=== PATIENT | female | born 1965 | race Caucasian/White ===

== ENCOUNTER 2019-09-22 09:46 | Emergency (ER) | payer OTHER ==
--- NOTE | 2019-09-22 10:13 | ER Document Report ---
ED Medical Screen (RME) - General Chief Complaint: Chest Pain Stated Complaint: CHEST DISCOMFORT Time Seen by Provider: 09/22/19 10:11 Primary Care Provider: BRIANA HYATT MD [Primary Care Provider] - Follow up as needed Mode of Arrival: Ambulatory Information source: Patient Notes: 53-year-old female presented to ED for complaint of urinary frequency, abdominal pain, chest pain, shoulder pain nausea but no vomiting. Did this morning. Patient is alert and oriented respirations regular and unlabored. Patient has elevated cholesterol diabetes type II. States she has had a total hysterectomy. I have greeted and performed a rapid initial assessment of this patient. A comprehensive ED assessment and evaluation of the patient, analysis of test results and completion of medical decision making process will be conducted by an additional ED providers. TRAVEL OUTSIDE OF THE [place] IN LAST 30 DAYS: No - Related Data Allergies/Adverse Reactions: morphine [Morphine] Adverse Reaction (Verified 08/01/12 22:26) Past Medical History - Social History Frequency of alcohol use: None Drug Abuse: None Psychiatric Medical History: Reports: Hx Depression Past Surgical History: Reports: Hx Hysterectomy Course - Laboratory Laboratory results interpreted by me: 09/22/19 10:01 POC Glucose 119 H Doctor's Discharge - Discharge Referrals: BRIANA HYATT MD [Primary Care Provider] - Follow up as needed
--- NOTE | 2019-09-22 10:35 | ER Document Report ---
ED Cardiac - General Chief Complaint: Chest Pain Stated Complaint: CHEST DISCOMFORT Time Seen by Provider: 09/22/19 10:11 Primary Care Provider: BRIANA HYATT MD [COMMUNITY BASED STAFF] - Follow up as needed Mode of Arrival: Stretcher - This 53-year-old woman presents to the emergency department with a history of chest pressure and left shoulder pain which began at her doctor's office for an appointment. Patient was sent to the emergency department by EMS. An EKG was performed which revealed no acute ST elevation [place]. She has a known history of anxiety and depression. Patient states she has had episodes similar in the past which she has contributed to her anxiety. She states that the symptoms lasted for about 5 minutes, she has had some dizziness and nausea associated with symptoms. She has history of diabetes, hypercholesterolemia elevated BMI, she denies a history of CAD. Information source: Patient TRAVEL OUTSIDE OF THE [place] IN LAST 30 DAYS: No - Related Data Allergies/Adverse Reactions: morphine [Morphine] Adverse Reaction (Verified 09/22/19 10:39) Past Medical History - General Information source: Patient - Social History Smoking Status: Never Smoker Frequency of alcohol use: None Drug Abuse: None Family History: Reviewed & Not Pertinent Patient has suicidal ideation: No Patient has homicidal ideation: No Pulmonary Medical History: Reports: Hx Pneumonia Endocrine Medical History: Reports: Hx Diabetes Mellitus Type 2 Renal/ Medical History: Reports: Hx Kidney Stones Psychiatric Medical History: Reports: Hx Depression Past Surgical History: Reports: Hx Hysterectomy Review of Systems - Review of Systems Constitutional: denies: Chills, Malaise EENT: No symptoms reported Cardiovascular: Chest pain - Chest pressure, Dizziness, Lightheaded Respiratory: No symptoms reported Gastrointestinal: No symptoms reported Female Genitourinary: No symptoms reported Musculoskeletal: No symptoms reported Skin: No symptoms reported Hematologic/Lymphatic: No symptoms reported Neurological/Psychological: No symptoms reported Physical Exam - Vital signs Vitals: Pulse Ox 100 09/22/19 09:51 Interpretation: Normal - General General appearance: Appears well, Alert - HEENT Head: Normocephalic, Atraumatic Eyes: Normal Pupils: PERRL - Respiratory Respiratory status: No respiratory distress Chest status: Nontender Breath sounds: Normal Chest palpation: Normal - Cardiovascular Rhythm: Regular Heart sounds: Normal auscultation Murmur: No - Abdominal Inspection: Normal Distension: No distension Bowel sounds: Normal Tenderness: Nontender Organomegaly: No organomegaly - Back Back: Normal, Nontender - Extremities General upper extremity: Normal inspection, Nontender, Normal color, Normal ROM, Normal temperature General lower extremity: Normal inspection, Nontender, Normal color, Normal ROM, Normal temperature, Normal weight bearing. No: Jens's sign - Neurological Neuro grossly intact: Yes Cognition: Normal Orientation: AAOx4 Zoë Coma Scale Eye Opening: Spontaneous Zoë Coma Scale Verbal: Oriented Zoë Coma Scale Motor: Obeys Commands Zoë Coma Scale Total: 15 Speech: Normal Motor strength normal: LUE, RUE, LLE, RLE Sensory: Normal - Psychological Associated symptoms: Normal affect, Normal mood - Skin Skin Temperature: Warm Skin Moisture: Dry Skin Color: Normal Course - Re-evaluation Re-evalutation: Patient complains of urinary urgency and flank pain with associated hematuria. She is concerned about a possible kidney stone . Will perform imagining, CT abd and pelvis without contrast.She has not had any further chest pressure or pain. 1st troponin is negative. 09/22/19 15:08 Heart Score Susp: Presentation 1 EKG normal 0 Risk factors 3 Troponin I X2 nl 0 total 4 - Vital Signs Vital signs: Temp Pulse Resp BP Pulse Ox 98.3 F 76 11 L 105/68 99 09/22/19 10:15 09/22/19 10:58 09/22/19 14:01 09/22/19 14:00 09/22/19 14:01 - Laboratory Result Diagrams: 09/22/19 10:15 09/22/19 10:15 Laboratory results interpreted by me: 09/22/19 09/22/19 09/22/19 10:01 10:15 10:17 Glucose 119 H POC Glucose 119 H Urine Blood SMALL H 09/22/19 14:21 urinalysis with hematuria 09/22/19 15:13 Troponin X2 <0.12 - Diagnostic Test Radiology reviewed: Image reviewed, Reports reviewed - CT abdominal and Pelvis interpertation: no hydroneprosis, no ureter calcification, no bladder stone. Chest Xray : Negative. - EKG Interpretation by K[facility] EKG shows normal: Sinus rhythm - rate 86 bpm Rate: Normal Rhythm: NSR Discharge - Discharge Clinical Impression: Non-cardiac chest pain, Dysuria, Urgency of urination, UTI (urinary tract infection) Condition: Good Disposition: HOME, SELF-CARE Instructions: Chest Pain of Unclear Cause ([facility]), Nitrofurantoin ([facility]), Urinary Tract Infection ([facility]) Prescriptions: Nitrofurantoin/Nitrofuran Mac [Macrobid 100 mg Capsule] 1 tab PO BID #20 capsule Phenazopyridine HCl [Pyridium 200 mg Tablet] 200 mg PO TID #15 tablet Referrals: BRIANA HYATT MD [COMMUNITY BASED STAFF] - Follow up as needed
[2019-09-22 10:37] LABS: ABSOLUTE LYMPHOCYTES (AUTO) 2.4 10^3/uL (0.5-4.7); ABSOLUTE MONOCYTES (AUTO) 0.4 10^3/uL (0.1-1.4); ABSOLUTE NEUT (AUTO) 4.8 10^3/uL (1.7-8.2); BASOPHILS % (AUTO) 0.5 % (0-2); EOSINOPHILS % (AUTO) 0.5 % (0-6); HEMATOCRIT 37.4 % (36.0-47.0); LYMPHOCYTES % (AUTO) 31.4 % (13-45); MEAN CORPUSCULAR HEMOGLOBIN 31.4 pg (27.0-33.4); MEAN CORPUSCULAR HGB CONC 34.8 g/dL (32.0-36.0); MEAN CORPUSCULAR VOLUME 90 fl (80-97); MONOCYTES % (AUTO) 5.8 % (3-13); PLATELET COUNT 382 10^3/uL (150-450); RED BLOOD COUNT 4.15 10^6/uL (3.72-5.28); RED CELL DISTRIBUTION WIDTH 12.5 % (11.5-14.0); SEGMENTED NEUTROPHILS % (AUTO) 61.8 % (42-78); TOTAL CELLS COUNTED % (AUTO) 100 %; WHITE BLOOD COUNT 7.7 10^3/uL (4.0-10.5)
[2019-09-22 10:43] LABS: APPEARANCE,URINE CLEAR; BILIRUBIN,URINE NEGATIVE (NEGATIVE); COLOR,URINE YELLOW; GLUCOSE, URINE NEGATIVE (NEGATIVE); KETONES,URINE NEGATIVE (NEGATIVE); PROTEIN,URINE NEGATIVE (NEGATIVE); UROBILINOGEN,URINE NEGATIVE mg/dL (<2.0)
--- NOTE | 2019-09-22 10:46 | RADIOLOGY REPORT (SQ) ---
EXAM DESCRIPTION: CHEST 2 VIEWS COMPLETED DATE/TIME: 09/22/2019 10:26 am REASON FOR STUDY: chest pain COMPARISON: None. EXAM PARAMETERS: NUMBER OF VIEWS: two views TECHNIQUE: Digital Frontal and Lateral radiographic views of the chest acquired. RADIATION DOSE: NA LIMITATIONS: none FINDINGS: LUNGS AND PLEURA: No opacities, masses or pneumothorax. No pleural effusion. MEDIASTINUM AND HILAR STRUCTURES: No masses or contour abnormalities. HEART AND VASCULAR STRUCTURES: Heart normal size. No evidence for failure. BONES: Mild anterior wedging at the thoracolumbar junction, increased from prior, chronicity uncertai n. HARDWARE: None in the chest. OTHER: No other significant finding. IMPRESSION: No evidence of acute cardiopulmonary process. Mild increased anterior wedging at the thoracolumbar junction from prior exam dated 2014. Chronicity uncertain, recommend correlation with symptoms. TECHNICAL DOCUMENTATION: JOB ID: [id number] [employer]- All Rights Reserved Reading location - IP/workstation name: [email or web address]
[2019-09-22 10:48] LABS: ALBUMIN 4.4 g/dL (3.5-5.0); ALKALINE PHOSPHATASE 84 U/L (38-126); ANION GAP 10 (5-19); ASPARTATE AMINO TRANSFERASE 23 U/L (14-36); BILIRUBIN,DIRECT 0.1 mg/dL (0.0-0.4); BILIRUBIN,TOTAL 0.5 mg/dL (0.2-1.3); BLOOD UREA NITROGEN 11 mg/dL (7-20); CALCIUM 9.5 mg/dL (8.4-10.2); CARBON DIOXIDE 29 mmol/L (22-30); CHLORIDE 101 mmol/L (98-107); GLUCOSE 119 mg/dL (75-110); POTASSIUM 4.8 mmol/L (3.6-5.0); TOTAL PROTEIN 7.6 g/dL (6.3-8.2)
[2019-09-22 16:06] VITALS: BP 140/97
--- NOTE | 2019-09-22 17:09 | RADIOLOGY REPORT (SQ) ---
EXAM DESCRIPTION: CT ABD/PELVIS NO ORAL OR IV COMPLETED DATE/TIME: 09/22/2019 2:25 pm REASON FOR STUDY: Flank pain , urinary urgency and hematuria COMPARISON: None. TECHNIQUE: CT scan of the abdomen and pelvis performed without intravenous or oral contrast. Images reviewed with lung, soft tissue, and bone windows. Reconstructed coronal and sagittal MPR images revi ewed. All images stored on PACS. All CT scanners at this facility use dose modulation, iterative reconstruction, and/or weight based d osing when appropriate to reduce radiation dose to as low as reasonably achievable (ALARA). [facility]: Dose Right [facility]: CareDose [facility]: Dose Right [facility]: Teradose 4D [facility]: Abimate.ee RADIATION DOSE: 12mGy. LIMITATIONS: None. FINDINGS: LOWER CHEST: No significant findings. No nodules or infiltrates. NON-CONTRASTED LIVER, SPLEEN, ADRENALS: Evaluation limited by lack of IV contrast. No identified sign ificant masses. Fatty infiltration of the liver. PANCREAS: No masses. No peripancreatic inflammatory changes. GALLBLADDER: No identified stones by CT criteria. No inflammatory changes to suggest cholecystitis. RIGHT KIDNEY AND URETER: No suspicious masses. Assessment limited by lack of IV contrast. No signif icant calcifications. No hydronephrosis or hydroureter. LEFT KIDNEY AND URETER: No suspicious masses. Assessment limited by lack of IV contrast. No signifi cant calcifications. No hydronephrosis or hydroureter. AORTA AND RETROPERITONEUM: No aneurysm. No retroperitoneal masses or adenopathy. BOWEL AND PERITONEAL CAVITY: No obvious masses or inflammatory changes. No free fluid. APPENDIX: Normal. PELVIS, BLADDER, AND ABDOMINAL WALL:No abnormal masses. No free fluid. Bladder normal. Post hysterec francisco. BONES: Chronic appearing 25% upper endplate compression at L1. OTHER: No other significant finding. IMPRESSION: NO SIGNIFICANT OR ACUTE PROCESS IN THE ABDOMEN OR PELVIS. COMMENT: Quality ID # [id number]: Final reports with documentation of one or more dose reduction techniques (e.g., Automated exposure control, adjustment of the mA and/or kV according to patient size, use of iterative reconstruction technique) TECHNICAL DOCUMENTATION: JOB ID: [id number] [employer]- All Rights Reserved Reading location - IP/workstation name: [email or web address]
--- NOTE | 2019-09-24 | EKG REPORT ---
SEVERITY:- NORMAL ECG - SINUS RHYTHM : Confirmed by: Dionte Arambula 23-Sep-2019 23:59:42
== END 2019-09-22 16:07 | disposition home or self-care (01) ==
LOC: ER 09:46
DX: N39.0 Urinary tract infection, site not specified (principal); R07.89 Other chest pain; R30.0 Dysuria; R39.15 Urgency of urination; M25.512 Pain in left shoulder; F41.9 Anxiety disorder, unspecified; R42 Dizziness and giddiness; R11.0 Nausea; E11.9 Type 2 diabetes mellitus without complications
CPT/HCPCS: 36415; 71046; 74176; 80053; 81001; 82962; 84484; 85025; 93005; 93010; 99285